=== PATIENT | female | born 1965 | race Caucasian/White ===

== ENCOUNTER 2024-04-15 13:46 | Outpatient (RCR) | payer MEDICAID, SELFPAY ==
--- NOTE | 2024-04-15 15:39 | PT.OIERPT ---
PT OP Initial Eval Patient Information Outpatient Physical Therapy Treatment Date: 04/15/24 Visit Reasons: low back pain Medical Diagnosis: Back Pain Treatment Dx #1: Back Pain Start of Care: 04/15/24 Date of Onset: 1 year ago Smoking Status Smoking Status: Current some day smoker (yes) Cessation Counseling Provided: MOHSEN was advised that quitting smoking is the single most important factor to protect the health of themselves and their family. Discussed the benefits of quitting smoking with patient. Encouraged patient to quit smoking and provided Cessation assistance materials and resources. Tobacco Use: Cigarette Years smoked: 20 Are you interested in quitting?: No Would you like additional Smoking Cessation Counseling?: No Initial Assessment Subjective: Pt is a 58 y/o female reports of chronic back pain (03/03) worsening ~ 1 year ago. Pt denies of numbness or tingling more localized pain with swelling. Pt has limitation with sitting, standing, chores, self care, walking, and performing recreational activities. Objective: L/S AROM: all motions are WFL with end range pain all plane Hip PROM: all motions are WFL except IR Hip MMTs: grossly 3/5 Special Test (+) solorio Palpation: TTP and hypomobile left L4 facet Assessment: Pt demonstrate back pain with mobility deficits consistent with facet syndrome leading to difficulty with ADLs. Pt will attempt physical therapy if pain persist Pt will be refer back to provider for further consultation. Short Term and Sql Report Writer Goals 1) Increase L/S AROM WNL in 6 wks to be able to perform chores 2) Decrease back pain to 2/10 in 6 wks to be able to sit and stand more than 30 mins 3) Increase core strength WFL in 6 wks to be able to perform recreational activities 4) Increase hip MMTs grossly to 4-/5 in 6 wks to be able to walk more than 30 mins 5) Indep with HEP Treatment Plan 1) Manual Therapy 2) Therapeutic Activities 3) Therapeutic Exercises 4) Modalities (ice, heat) Frequency and Duration: 2 x wk for 6 wks Certification Dates: 04/15/24 to 07/16/24 Procedure Charges OP PT Eval Mod Complex 30 minutes: Yes
== END 2024-04-23 23:59 | disposition home or self-care (01) ==
LOC: CPTX 13:46
PROVIDERS: PCP Physician Assistant; Referring Provider Physician Assistant; Visit Provider Physician Assistant
DX: M54.50 Low back pain, unspecified (principal); R26.2 Difficulty in walking, not elsewhere classified; G89.29 Other chronic pain; Z71.6 Tobacco abuse counseling; F17.210 Nicotine dependence, cigarettes, uncomplicated
CPT/HCPCS: 97162

== ENCOUNTER 2024-05-04 09:00 | Outpatient (RCR) | payer MEDICAID, SELFPAY ==
--- NOTE | 2024-04-25 10:08 | PT.ODAYNRPT ---
PT Outpatient Daily Note OP Daily Note Outpatient Physical Therapy Treatment Date: 04/25/24 Visit Reasons: low back pain Subjective: Pt's back is okay. Pt still has pain with activities. Objective: Please see flow chart for list of ther ex performed Assessment: tolerate supine exercises with heat. Slight decrease in back pain post PT session. Modified SB pressdown using elbows to decrease hand pain/pressure Plan: Continue with PT Length of Time (minutes) of Treatment: 30 Minutes Procedure Charges Therapeutic Exercise 30 minutes: Yes
--- NOTE | 2024-04-27 10:28 | PT.ODAYNRPT ---
PT Outpatient Daily Note OP Daily Note Outpatient Physical Therapy Treatment Date: 04/27/24 Visit Reasons: low back pain Subjective: Pt reports low back has been about the same, continues to be painful. Objective: Please see flow sheet for ther ex list. Assessment: Pt demonstrates poor activity tolerance due to pain response. Plan: Continue with POC. Length of Time (minutes) of Treatment: 30 Minutes Procedure Charges Therapeutic Exercise 30 minutes: Yes
--- NOTE | 2024-05-02 09:30 | PT.ODAYNRPT ---
PT Outpatient Daily Note OP Daily Note Outpatient Physical Therapy Treatment Date: 05/02/24 Visit Reasons: low back pain Subjective: Pt's back is okay no new concerns reported. Objective: Please see flow chart for list of ther ex performed Assessment: progressing with supine exercises with less pain reported. Pt also demonstrate improved overall L/S mobility. Plan: Continue with PT Length of Time (minutes) of Treatment: 30 Minutes Procedure Charges Therapeutic Exercise 30 minutes: Yes
--- NOTE | 2024-05-04 09:24 | PT.ODAYNRPT ---
PT Outpatient Daily Note OP Daily Note Outpatient Physical Therapy Treatment Date: 05/04/24 Visit Reasons: low back pain Subjective: Pt reports low back continues to hurt. Objective: Please see flow sheet for ther ex list. Assessment: Performed STM pt tolerated well, decrease c/o LBP symptoms. Plan: Continue with POC. Length of Time (minutes) of Treatment: 30 Minutes Procedure Charges Therapeutic Exercise 30 minutes: Yes
== END 2024-05-24 23:59 | disposition home or self-care (01) ==
LOC: CPTX 09:00
PROVIDERS: PCP Physician Assistant; Referring Provider Physician Assistant; Visit Provider Physician Assistant
DX: M54.50 Low back pain, unspecified (principal); R26.2 Difficulty in walking, not elsewhere classified; G89.29 Other chronic pain
CPT/HCPCS: 97110

== ENCOUNTER 2024-07-16 13:56 | Emergency (ER) | payer MEDICAID, SELFPAY ==
[2024-07-16 13:57] VITALS: BMI 29.0
[2024-07-16 14:22] VITALS: BP 157/82; PULSE 92; RESP 18; TEMP 36.9; O2SAT 98; BMI 29.2
--- NOTE | 2024-07-16 14:52 | XR_ITS ---
Examination: Duplex scan of the lower extremity, unilateral left complete Date and time of exam: Left leg pain beginning 3 days ago Technique: Duplex scan of the extremity veins using B-mode/grayscale imaging and Doppler spectral analysis and color flow Attention is directed to internal echogenicity, compression and augmentation involving these veins, color flow assessment, spectral analysis Findings: Major deep venous structures in the extremity demonstrate normal course and caliber. There is no evidence of deep vein thrombosis. Normal color flow and spectral analysis Impression: Negative for DVT..
--- NOTE | 2024-07-16 14:52 | PD.EDRME ---
Rapid Medical Screening Exam E Arrival date/time: 07/16/24 13:56 This is a 58-year-old female presents to the emergency department with complaints of left lower calf pain x 2 days. I have greeted and performed a focused initial assessment of this patient. Initial appropriate labs ordered at this time. A comprehensive ED assessment and evaluation of the patient and analysis of all test and completion of medical decision making process will be conducted by additional ED provider. Chief Complaint: Extremity Problem,Nontraumatic Time Seen by Provider: 07/16/24 14:31 Vital signs: Vital Signs Temperature 98.5 F 07/16/24 14:22 Pulse Rate 92 07/16/24 14:22 Respiratory Rate 18 07/16/24 14:22 Blood Pressure 157/82 H 07/16/24 14:22 Pulse Oximetry (%) 98 07/16/24 14:22 Oxygen Delivery Method Room Air 07/16/24 14:22
[2024-07-16 15:12] LABS: Basophils # (Auto) 0.1 Thou/mm3 (0.0-0.2); Basophils % (Auto) 1 % (0-2.5); Eosinophils # (Auto) 0.1 Thou/mm3 (0.0-0.5); Eosinophils % (Auto) 2 % (0-10); Hematocrit 41.7 % (36.0-46.0); Hemoglobin 13.8 g/dL (12.0-16.0); Immature Granulocytes % (Auto) 0 % (0-0); Immature Granulocytes Auto 0.01 Thou/mm3 (0.00-0.00); Lymphocytes # (Auto) 1.5 Thou/mm3 (1.0-4.8); Lymphocytes % (Auto) 24 % (10-50); Mean Corpuscular HGB Conc 33.1 g/dl (31.0-37.0); Mean Corpuscular Hemoglobin 29.3 pg (25.0-35.0); Mean Corpuscular Volume 89 fL (80-100); Monocytes # (Auto) 0.5 Thou/mm3 (0.0-0.8); Monocytes % (Auto) 8 % (0-12); Neutrophils % (Auto) 65 % (37-80); Nucleated Red Blood Cell % 0 /100 WBC (0); Platelet Count 225 Thou/mm3 (140-440); RDW Standard Deviation 42.2 fL (36.4-46.3); Red Blood Count 4.71 Miln/mm3 (4.00-5.20); White Blood Count 6.1 Thou/mm3 (3.6-11.0)
[2024-07-16 15:33] LABS: Alanine Aminotransferase 79 U/L (10-49); Albumin/Globulin Ratio 1.7 (1.2-2.2); Alkaline Phosphatase 148 U/L (46-116); Anion Gap 7 (7-16); Aspartate Amino Transferase 40 U/L (0-34); BUN/Creatinine Ratio 18 Ratio (12-20); Bilirubin,Total 0.3 mg/dL (0.3-1.2); Blood Urea Nitrogen 14 mg/dL (9-23); Calcium 9.2 mg/dL (8.3-10.6); Calcium (Corrected) 9.2 mg/dL (8.5-10.1); Carbon Dioxide 27.2 mMol/L (20.0-31.0); Chloride 107 mMol/L (98-107); Creatinine (Component) 0.8 mg/dL (0.6-1.3); Estimated Creatinine Clearance 85.8 mL/min (>60); Globulin 2.4 gm/dL (2.3-3.5); Glucose 101 mg/dL (74-106); Osmolality,Calculated 281 (275-295); Sodium 141 mMol/L (136-145); Total Protein 6.4 gm/dL (5.7-8.2); eGFR > 60 See Note
[2024-07-16 16:37] LABS: INR 0.9 (0.9-1.3); Prothrombin Time 10.2 Seconds (9.0-12.2)
[2024-07-16 16:51] VITALS: BP 148/84; PULSE 88; RESP 20; TEMP 36.9; O2SAT 98
--- NOTE | 2024-08-12 06:51 | PD.EDBACK ---
ED Back Injury Pain RME/HPI General Chief Complaint: Extremity Problem,Nontraumatic Stated Complaint: RO DVT Left leg Time Seen by Provider: 07/16/24 14:31 Source: patient Arrival date/time: 07/16/24 13:56 This is a 58-year-old female significant past medical history of depression, hypertension with complaints of left calf pain for 2 days. Reports no injury. No other complaints. Mode of arrival: ambulatory Limitations: no limitations RME / HPI RME / HPI Narrative: 07/16/24 13:56 This is a 58-year-old female presents to the emergency department with complaints of left lower calf pain x 2 days. I have greeted and performed a focused initial assessment of this patient. Initial appropriate labs ordered at this time. A comprehensive ED assessment and evaluation of the patient and analysis of all test and completion of medical decision making process will be conducted by additional ED provider. Related Data Home Medications ?Medication ?Instructions ?Recorded ?Confirmed lisinopril 10 mg tablet 10 mg PO QDAY 02/20/19 02/20/19 aripiprazole 10 mg tablet (Abilify) 10 mg PO QHS 11/02/19 sertraline 100 mg tablet (Zoloft) 150 mg PO QDAY 11/02/19 Previous Rx's ?Medication ?Instructions ?Recorded cyclobenzaprine 10 mg tablet 10 mg PO TID PRN muscle spasm #30 11/02/19 tabs ibuprofen 800 mg tablet 800 mg PO TID PRN pain #30 tabs 11/02/19 tobramycin 0.3 % eye drops 1 drp ophthalmic (eye) Q4H #5 mL 01/21/22 erythromycin 5 mg/gram (0.5 %) eye 1 applic ophthalmic (eye) Q6H 7 07/13/22 ointment days #3.5 grams Allergies Allergy/AdvReac Type Severity Reaction Status Date / Time No Known Allergies Allergy Verified 07/13/22 20:30 Review of Systems Review of Systems Systems Reviewed: All systems reviewed, normal except as documented Narrative Review of Systems: Gen: No fever, no chills, no weight loss EYES: No discharge, no visual changes, no pain HEENT: No ear pain, no congestion, no sore throat PULM: No shortness of breath, no cough, no congestion CV: No chest pain, no dyspnea on exertion, no palpitations GI: No nausea, no vomiting, no diarrhea, no pain, no constipation : No frequency, no urgency, no dysuria Musc/skel: +calf pain, no back pain Skin: No rash Psyc: No hallucinations, no depression Heme/Lymph: No easy bleeding or bruising tendencies Neuro: No weakness, no headache ED Exam General Limitations: Present no limitations General appearance: Present alert and in no apparent distress Head Head exam: Present atraumatic Eye Eye exam: Present normal appearance, PERRL and EOMI ENT ENT exam: Present normal exam, normal oropharynx and mucous membranes moist Neck Neck exam: Present normal inspection, full ROM and trachea midline Chest Chest inspection: Present normal inspection and symmetric chest wall rise Respiratory Respiratory exam: Present normal lung sounds bilaterally Cardiovascular Cardiovascular exam: Present regular rate, normal rhythm and normal heart sounds Abdominal Exam Abdominal exam: Present soft and normal bowel sounds Extremities Exam Extremities exam: Present normal inspection and full ROM Back Exam Back exam: Present normal inspection and full ROM Neurological Exam Neurological exam: Present alert, oriented X3 and CN II-XII intact Psychiatric Psychiatric exam: Present normal affect and normal mood Skin Skin exam: Present warm, dry, intact and normal color Course Quality Measures none Orders Category Date Time Status US venous duplex LE LT Stat Exams 07/16/24 14:52 Completed CBC Stat Lab 07/16/24 14:59 Completed CMP [Comprehensive Metabolic Panel] Stat Lab 07/16/24 14:59 Completed PT [Prothrombin Time with INR] Stat Lab 07/16/24 14:59 Completed Vital Signs Vital signs: Vital Signs Temperature 98.5 F 07/16/24 14:22 Pulse Rate 92 07/16/24 14:22 Respiratory Rate 18 07/16/24 14:22 Blood Pressure 157/82 H 07/16/24 14:22 Pulse Oximetry (%) 98 07/16/24 14:22 Oxygen Delivery Method Room Air 07/16/24 14:22 Back Pain / Injury Patient data External records reviewed:: [facility] previous records Clinical information provided by:: patient Social determinants that could affect healthcare access:: none Patient has the following chronic illnesses:: Hypertension How is presenting disease/condition affected by chronic disease/condition?: uneffected by Evaluation data The following diagnostics were reviewed and interpreted by me:: radiology exam(s) Lab and/or radiology exams considered but not ordered:: no Interpretation Summary: Examination: Duplex scan of the lower extremity, unilateral left complete Date and time of exam: Left leg pain beginning 3 days ago Technique: Duplex scan of the extremity veins using B-mode/grayscale imaging and Doppler spectral analysis and color flow Attention is directed to internal echogenicity, compression and augmentation involving these veins, color flow assessment, spectral analysis Findings: Major deep venous structures in the extremity demonstrate normal course and caliber. There is no evidence of deep vein thrombosis. Normal color flow and spectral analysis Impression: Negative for DVT.. Medications / Prescriptions Medications or Prescriptions considered but not ordered:: narcotics, for pain Medication administrations:: no Consultations Consultation(s) initiated? (list below): No Diagnosis Differential diagnosis back pain/injury: other ( calf strain, muscle ache, DVT) Most likely diagnosis given after review of the tests above:: lower extremity pain Admission Indicated Admission indicated?: not indicated Admission Request Was there a request for admission?: No Disposition Plan Disposition Plan: Discharge Discharge Attestation Discharge Attestation: The patient and all family members were given an opportunity to ask questions and understood the discharge instructions. Discharge instructions specifically effects, indications for sooner follow up or return to the emergency department, and the expected course of current diagnosis. Patient condition: Stable Discharge Plan Plan Patient Disposition: HOME (Self Care) Patient condition on transfer: Stable Prescriptions/Referrals Prescriptions/Med Rec: No Action aripiprazole [Abilify] 10 mg tablet 10 mg PO QHS sertraline [Zoloft] 100 mg tablet 150 mg PO QDAY ibuprofen 800 mg tablet 800 mg PO TID PRN (Reason: pain) Qty: 30 0RF cyclobenzaprine 10 mg tablet 10 mg PO TID PRN (Reason: muscle spasm) Qty: 30 0RF tobramycin 0.3 % drops 1 drp ophthalmic (eye) Q4H Qty: 5 0RF lisinopril 10 mg Tablet 10 mg PO QDAY erythromycin 5 mg/gram (0.5 %) ointment 1 applic ophthalmic (eye) Q6H 7 Days Qty: 3.5 1RF Problem List Clinical Impression: Lower extremity pain Patient/Caregiver Discharge Instructions Discharge Activity: activity as tolerated Education Materials: ED Muscle Strain, Extremity Additional Instructions: Your ultrasound of your lower extremity does not demonstrate a blood clot. It is most likely a muscle strain. Please can take [id number] Tylenol or ibuprofen for pain. Follow-up with your clinic or primary doctor. Return to the emergency department this any worsening symptoms change in condition. Print Language: [place] Stand Alone Forms: [employer]ci Award Info., Patient Portal Info Letter PA/VIKRAM Supervising Physician PA/VIKRAM Supervising Physician: Dr Brar
== END 2024-07-16 16:52 | disposition home or self-care (01) ==
PROVIDERS: Nurse Practitioner Primary Care; Emergency Provider Emergency Medicine
DX: M79.662 Pain in left lower leg (principal)
CPT/HCPCS: 36415; 80053; 85025; 85610; 93971; 99284